=== PATIENT | female | born 1990 | race Asian ===

== ENCOUNTER 2022-10-11 05:25 | Emergency (ER) | payer OTHER, SELFPAY ==
[2022-10-11 05:36] VITALS: BP 128/84; PULSE 89; RESP 18; TEMP 36.7; O2SAT 99; BMI 19.5
--- NOTE | 2022-10-11 05:55 | CRLHL7_ITS ---
For Patients: As a result of the Century Cures Act, medical imaging exams and procedure reports are released immediately into your electronic medical record. You may view this report before your referring provider. If you have questions, please contact your health care provider. Indication: Left upper quadrant pain. Technique: Upright and supine views of the abdomen were acquired Comparison: There are no prior studies for comparison Findings: Osseous structures appear normal. Mild fecal retention. No indication of mechanical obstruction. No pathologic calcification Impression: Mild fecal retention without mechanical obstruction. Dictated by Noel Barrios MD @ 10/11/2022 6:50:23 AM (Electronically Signed)
--- NOTE | 2022-10-11 06:05 | ED_ITS ---
HPI - Chest Pain General Chief Complaint: Chest Pain Stated Complaint: chest pain Time Seen by Provider: 10/11/22 05:35 Source: patient and family Mode of arrival: ambulatory Limitations: no limitations History of Present Illness HPI narrative: Otherwise healthy 32-year-old female presents with pain underneath the left breast radiating to the left upper quadrant of the abdomen for the last hour. Earlier this evening, she was having crampy diffuse abdominal pain, mostly in the lower anterior abdomen that improved without any treatment. She does note some mild body aches and chills this evening but no true fever, cough or upper respiratory symptoms. No nausea. Slightly decreased appetite today. She denies , does not use contraception. Denies prior history of DVT or PE. She has no significant personal history of cardiac disease nor prior cardiac workup. She does have a remote family history of heart disease in a grandfather at typical ages. She did not try any home treatment for her pain. Currently, it is sharp and constant. It is worse with taking a deep breath and with sudden movements. She denies any rash. There is no shortness of breath, cough or other associated symptoms. She does not have a history of asthma. No palpitations or heart fluttering. No history of arrhythmias. Last bowel movement was yesterday evening, formed. Reporting that it was smaller than usual. Past medical history benign. Denies any major long-term health problems. No prescription medications. No allergies. No surgeries. Socially, she is a nonsmoker with no recent pertinent travel. Family history is notable for heart disease only at advanced ages. ROS is notable for the generalized and chest wall symptoms and abdominal symptoms as described above. Otherwise denies times 15 systems. Related Data Home Medications Medication Instructions Recorded Confirmed No Known Home Medications 10/11/22 10/11/22 Allergies Allergy/AdvReac Type Severity Reaction Status Date / Time No Known Drug Allergies Allergy Verified 10/11/22 05:39 [facility] Medical History (Updated 10/11/22 @ 07:20 by Abida Alexander MD) No significant past medical history Surgical History (Updated 10/11/22 @ 06:16 by Ward Bingham RN) H/O excision of ganglion cyst History of wisdom tooth extraction Hx of LASIK Social History Smoking Status: Never smoker Do you use any of these nicotine containing products: None Second hand tobacco smoke exposure: No How often do you have a drink containing alcohol: never How often do you have six or more drinks on one occasion: Never AUDIT-C Alcohol total score: 0 Non-prescribed substance use: denies use Exam Const Vital Signs, click to edit/add: Vital Signs - 24 hr 10/11/22 05:36 10/11/22 06:07 10/11/22 07:10 Temperature 98.0 F 98.0 F Pulse Rate [Right Pulse Oximeter] 89 77 Respiratory Rate 18 18 Blood Pressure [Right Upper Arm] 128/84 92/63 Pulse Oximetry 99 96 Oxygen Delivery Method Room Air Room Air Documenting provider has reviewed patient's vital signs: yes Common normals: no apparent distress and alert General appearance: cooperative and well kempt Orientation/consciousness: Yes awake Other: Appears mildly uncomfortable. Faisal historian. MAURISIO Common normals: normocephalic Head and scalp: normocephalic Mouth: oral and palatal mucosa normal Throat: posterior oropharynx normal Eye Common normals: no scleral icterus Other: Conjunctiva are slightly injected, normal visual tracking. Neck & C-Spine Common normals: full ROM Other: Mild anterior cervical and submandibular lymphadenopathy noted. Mildly tender. No meningeal signs. Chest Common normals: inspection of chest normal Other: Palpation of left anterior ribs and epigastric region do reproduce tenderness. Resp Common normals: normal respiratory effort, no use of accessory muscles and clear to auscultation bilaterally Effort & inspection: able to speak in complete sentences Auscultation: clear to auscultation bilaterally Cardio Common normals: regular rate, regular rhythm, S1 normal heart sound, S2 normal heart sound, no murmurs and peripheral pulses 2+ throughout Rate: regular rate Rhythm: regular rhythm Heart sounds: S1 normal and S2 normal Peripheral pulses: pulses 2+ throughout GI Common normals: Normal to inspection, nondistended, normoactive bowel sounds present Other: Mildly tender to palpation of left upper quadrant, no rebound tenderness or guarding. No mass. Common normals: no CVA tenderness Bladder/kidney exam: no CVA tenderness Back & Pelvis Common normals: no CVA tenderness and thoracic and lumbar spine normal to inspection Extremity Common normals: normal to inspection, normal capillary refill and no pedal edema Neuro Sensorium/orientation: awake and alert Speech: speech normal Motor exam: strength 5/5 throughout, no tremor noted and no movement abnormalities noted Psych Appearance: well kempt Attitude: engaged Activity/motor behavior: appropriate eye contact Insight: insight good Judgement: judgment good Skin Common normals: no rashes or lesions noted General skin exam: no rashes or lesions noted Course Vital Signs Vital signs: Initial Vital Signs Temperature 98.0 F 10/11/22 05:36 Temperature Source Temporal Artery Scan 10/11/22 05:36 Pulse Rate 89 10/11/22 05:36 Respiratory Rate 18 10/11/22 05:36 Blood Pressure 128/84 10/11/22 05:36 Blood Pressure Mean 98 10/11/22 05:36 Blood Pressure Position Sitting 10/11/22 05:36 Pulse Oximetry 99 10/11/22 05:36 Oxygen Delivery Method 10/11/22 05:36 Vital Signs Temperature 98.0 F 10/11/22 05:36 Pulse Rate 89 10/11/22 05:36 Respiratory Rate 18 10/11/22 05:36 Blood Pressure 128/84 10/11/22 05:36 Pulse Oximetry 99 10/11/22 05:36 Oxygen Delivery Method 10/11/22 05:36 Temperature 98.0 F 10/11/22 06:07 Pulse Rate 77 10/11/22 07:10 Respiratory Rate 18 10/11/22 07:10 Blood Pressure 92/63 10/11/22 07:10 Pulse Oximetry 96 10/11/22 07:10 Oxygen Delivery Method 10/11/22 07:10 MDM - Chest Pain MDM Narrative Medical decision making narrative: Differential diagnosis including cardiac disease, pulmonary disease, constipation, pulmonary embolism, pneumonia, influenza, gastritis or esophagitis. Reproducible chest pain also suggestive of musculoskeletal etiology. No rashes to suggest shingles. Counseled patient on initial suspicion based exam. Will get EKG, basic labs and x-ray of abdomen. Administer Tylenol and famotidine. Update 0730: Patient without much change in symptoms following Tylenol and famotidine. This is as expected. X-ray reviewed, per my interpretation gas and some constipation. Per radiologist interpretation, mild fecal retention with no signs of obstruction, consistent with my findings. Labs and x-ray findings discussed with patient. I do think the constipation explains her symptoms. Will administer MiraLax x1. She asks a lot of follow-up questions regarding long-term symptoms, I encouraged her to start a low FODMAP diet and to follow up with her primary care provider to discuss further but I do relate to her that nothing she is describing sounds the least bit like an allergy. Medical Records Data Medical records narrative: No previous records available Lab Data Attestation: I reviewed the patient's lab results. Labs: Lab Results 10/11/22 10/11/22 10/11/22 Range/Units 06:00 06:05 06:15 WBC (4.50-11.00) K/uL RBC (4.00-5.20) m/uL Hgb (12.0-16.0) gm/dL Hct (33.0-51.0) % MCV (80-100) fL MCH (26-34) pg MCHC (32-36) gm/dL RDW Coeff of Topher (11.5-15.5) % Plt Count (140-440) K/uL Neut % (Auto) (42.0-72.0) % Lymph % (Auto) (20-44) % [place] % (Auto) (0.0-11.0) % Eos % (Auto) (0.0-7.0) % Baso % (Auto) (0.0-3.0) % Neut # (Auto) (1.7-7.0) K/uL Lymph # (Auto) (0.90-2.90) K/uL [place] # (Auto) (0.00-0.90) K/UL Eos # (Auto) (0.00-0.50) K/uL Baso # (Auto) (0.00-0.30) K/uL Abs Immat Gran (auto) (0.00-0.30) K/uL Imm/Tot Granulo (auto) % D-Dimer Quant (PE/DVT) (0.00-0.50) ug/ml Sodium 136 (135-149) mmol/L Potassium 3.8 (3.6-5.1) mmol/L Chloride 108 (96-114) mmol/L Carbon Dioxide 21 (20-32) mmol/L BUN 11 (5-24) mg/dL Creatinine 0.7 (0.5-1.5) mg/dL Estimated Creat Clear 92.56 Estimated GFR 119 ml/min Glucose 90 (60-115) mg/dL Calcium 9.6 (8.4-10.6) mg/dL Total Bilirubin 0.6 (0.1-1.5) mg/dL AST 22 (12-35) U/L ALT 17 (4-35) U/L Alkaline Phosphatase 70 (40-150) U/L Troponin I (0.01-0.04) ng/mL C-Reactive Protein (0.5-1.0) mg/dL Total Protein 7.3 (6.0-8.3) g/dL Albumin 4.2 (3.3-5.0) g/dL HCG, Qual Negative (Negative) Urine Color Yellow (Yellow) Urine Appearance Clear (Clear) Urine pH 5.5 (5.0-8.5) Ur Specific [place] 1.020 (1.000-1.030) Urine Protein Negative (Negative) Urine Glucose (UA) Negative (Negative) Urine Ketones 3+ A (Negative) Urine Blood 2+ A (Negative) Urine Nitrite Negative (Negative) Urine Bilirubin Negative (Negative) Urine Urobilinogen 0.2 (0.2-1.0) Ur Leukocyte Esterase Negative (Negative) Urine RBC 0-2 (0-2) Urine WBC 0-2 (0-5) Ur Squamous Epith Cells Few (None-Few) Amorphous Sediment Few A (None) Urine Bacteria Moderate A (None) Urine Mucus Few A (None) SARS-CoV-2 (PCR) Negative SARS-CoV-2 (Negative) Influenza Type A (PCR) Negative PCR FLU A (Negative) Influenza Type B (PCR) Negative PCR FLU B (Negative) POC Troponin I (0.01-0.04) ng/ml 10/11/22 10/11/22 10/11/22 Range/Units 06:15 06:15 06:15 WBC 7.74 (4.50-11.00) K/uL RBC 4.80 (4.00-5.20) m/uL Hgb 13.8 (12.0-16.0) gm/dL Hct 41.5 (33.0-51.0) % MCV 87 (80-100) fL MCH 29 (26-34) pg MCHC 33 (32-36) gm/dL RDW Coeff of Topher 12.5 (11.5-15.5) % Plt Count 210 (140-440) K/uL Neut % (Auto) 79.9 H (42.0-72.0) % Lymph % (Auto) 15.5 L (20-44) % [place] % (Auto) 3.2 (0.0-11.0) % Eos % (Auto) 0.9 (0.0-7.0) % Baso % (Auto) 0.4 (0.0-3.0) % Neut # (Auto) 6.20 (1.7-7.0) K/uL Lymph # (Auto) 1.20 (0.90-2.90) K/uL [place] # (Auto) 0.20 (0.00-0.90) K/UL Eos # (Auto) 0.07 (0.00-0.50) K/uL Baso # (Auto) 0.03 (0.00-0.30) K/uL Abs Immat Gran (auto) 0.01 (0.00-0.30) K/uL Imm/Tot Granulo (auto) 0.1 % D-Dimer Quant (PE/DVT) 0.42 (0.00-0.50) ug/ml Sodium (135-149) mmol/L Potassium (3.6-5.1) mmol/L Chloride (96-114) mmol/L Carbon Dioxide (20-32) mmol/L BUN (5-24) mg/dL Creatinine (0.5-1.5) mg/dL Estimated Creat Clear Estimated GFR ml/min Glucose (60-115) mg/dL Calcium (8.4-10.6) mg/dL Total Bilirubin (0.1-1.5) mg/dL AST (12-35) U/L ALT (4-35) U/L Alkaline Phosphatase (40-150) U/L Troponin I < 0.01 L (0.01-0.04) ng/mL C-Reactive Protein 0.6 (0.5-1.0) mg/dL Total Protein (6.0-8.3) g/dL Albumin (3.3-5.0) g/dL HCG, Qual (Negative) Urine Color (Yellow) Urine Appearance (Clear) Urine pH (5.0-8.5) Ur Specific [place] (1.000-1.030) Urine Protein (Negative) Urine Glucose (UA) (Negative) Urine Ketones (Negative) Urine Blood (Negative) Urine Nitrite (Negative) Urine Bilirubin (Negative) Urine Urobilinogen (0.2-1.0) Ur Leukocyte Esterase (Negative) Urine RBC (0-2) Urine WBC (0-5) Ur Squamous Epith Cells (None-Few) Amorphous Sediment (None) Urine Bacteria (None) Urine Mucus (None) SARS-CoV-2 (PCR) (Negative) Influenza Type A (PCR) (Negative) Influenza Type B (PCR) (Negative) POC Troponin I (0.01-0.04) ng/ml 10/11/22 Range/Units 06:15 WBC (4.50-11.00) K/uL RBC (4.00-5.20) m/uL Hgb (12.0-16.0) gm/dL Hct (33.0-51.0) % MCV (80-100) fL MCH (26-34) pg MCHC (32-36) gm/dL RDW Coeff of Topher (11.5-15.5) % Plt Count (140-440) K/uL Neut % (Auto) (42.0-72.0) % Lymph % (Auto) (20-44) % [place] % (Auto) (0.0-11.0) % Eos % (Auto) (0.0-7.0) % Baso % (Auto) (0.0-3.0) % Neut # (Auto) (1.7-7.0) K/uL Lymph # (Auto) (0.90-2.90) K/uL [place] # (Auto) (0.00-0.90) K/UL Eos # (Auto) (0.00-0.50) K/uL Baso # (Auto) (0.00-0.30) K/uL Abs Immat Gran (auto) (0.00-0.30) K/uL Imm/Tot Granulo (auto) % D-Dimer Quant (PE/DVT) (0.00-0.50) ug/ml Sodium (135-149) mmol/L Potassium (3.6-5.1) mmol/L Chloride (96-114) mmol/L Carbon Dioxide (20-32) mmol/L BUN (5-24) mg/dL Creatinine (0.5-1.5) mg/dL Estimated Creat Clear Estimated GFR ml/min Glucose (60-115) mg/dL Calcium (8.4-10.6) mg/dL Total Bilirubin (0.1-1.5) mg/dL AST (12-35) U/L ALT (4-35) U/L Alkaline Phosphatase (40-150) U/L Troponin I (0.01-0.04) ng/mL C-Reactive Protein (0.5-1.0) mg/dL Total Protein (6.0-8.3) g/dL Albumin (3.3-5.0) g/dL HCG, Qual (Negative) Urine Color (Yellow) Urine Appearance (Clear) Urine pH (5.0-8.5) Ur Specific [place] (1.000-1.030) Urine Protein (Negative) Urine Glucose (UA) (Negative) Urine Ketones (Negative) Urine Blood (Negative) Urine Nitrite (Negative) Urine Bilirubin (Negative) Urine Urobilinogen (0.2-1.0) Ur Leukocyte Esterase (Negative) Urine RBC (0-2) Urine WBC (0-5) Ur Squamous Epith Cells (None-Few) Amorphous Sediment (None) Urine Bacteria (None) Urine Mucus (None) SARS-CoV-2 (PCR) (Negative) Influenza Type A (PCR) (Negative) Influenza Type B (PCR) (Negative) POC Troponin I 0.00 L (0.01-0.04) ng/ml ECG Data Attestation: I personally reviewed and interpreted this ECG as follows: Prior ECG tracings: not available for review Interpretation: Normal sinus rhythm, rate of 80 with normal axis. Good R-wave progression, no LVH. No ST abnormalities, some T-wave inversion and or Flattening in the lateral leads, but suspect that this is just because of her very petite frame.. Discharge Plan Discharge Clinical Impression: Constipation Patient Disposition: Home w/ Parent or Adult Condition: Stable Instructions: Constipation (ED), High Fiber Diet (ED) Additional Instructions: As we discussed, there are no signs of problems with her heart, lungs, blood clots, liver or other vital organs. There are no signs of any emergent issues. Your swabs for COVID and influenza are also reassuring we negative. I do s uspect that the constipation explains the pain that your had I recommend that you continue using MiraLax 17 g which is 1 dose every 8 hours until your bowels are moving loosely. You may restart the MiraLax in the future for similar symptoms. Many people find that ACs small dose of MiraLax like a 1/2 tsp daily next into a warm beverage can help prevent future problems once the bowels have been cleaned out appropriately. You mention more long-term issues, I would recommend beginning a low FODMAP diet and following up with her primary care provider to further discuss your irritable bowel symptoms. This is not at all sound like a food allergy. You can perform an Internet search for the low FODMAP diet protocol. Chest pain that can be reproduced by deep breaths or pressing on the chest wall without significant additional worrisome symptoms like dizziness, shortness of breath or worsening on exertion are typically not emergent. This is also reassuring. It is okay to continue use of Tylenol and ibuprofen as needed for the discomfort. Activity Level: No Restrictions Discharge Diet: Regular Prescriptions: No Action No Known Home Medications Follow Up/Referrals: Provider,Not a Local [Primary Care Provider] - Stand Alone Forms: [employer] Info Instructions
[2022-10-11 06:07] VITALS: TEMP 36.7
[2022-10-11] MEDS: ACETAMINOPHEN 325 MG TABLET 650 MG PO (06:07)
[2022-10-11] MEDS: FAMOTIDINE 20 MG TABLET PO (06:07)
[2022-10-11 06:25] LABS: Basophils Absolute Auto 0.03 K/uL (0.00-0.30); Basophils Percent Auto 0.4 % (0.0-3.0); Eosinophils Absolute Auto 0.07 K/uL (0.00-0.50); Eosinophils Percent Auto 0.9 % (0.0-7.0); Hematocrit 41.5 % (33.0-51.0); Hemoglobin* 13.8 gm/dL (12.0-16.0); Immature Granulocytes Abs Auto 0.01 K/uL (0.00-0.30); Immature Granulocytes Pct Auto 0.1 %; Lymphocytes Percent Auto 15.5 % (20-44); Mean Corpuscular HGB Conc 33 gm/dL (32-36); Mean Corpuscular Hemoglobin 29 pg (26-34); Mean Corpuscular Volume 87 fL (80-100); Monocytes Percent Auto 3.2 % (0.0-11.0); Neutrophils Percent Auto 79.9 % (42.0-72.0); Platelet Count* 210 K/uL (140-440); RDW Coefficient of Variation % 12.5 % (11.5-15.5); White Blood Count* 7.74 K/uL (4.50-11.00)
[2022-10-11 06:26] LABS: Slide Review Reflex No
[2022-10-11 06:31] LABS: HCG Qualitative* Negative (Negative)
[2022-10-11 06:32] LABS: Appearance Urine Clear (Clear); Bilirubin Urine Negative (Negative); Blood Urine 2+ (Negative); Color Urine Yellow (Yellow); Glucose Urine Negative (Negative); Ketones Urine 3+ (Negative); Leukocyte Esterase Urine Negative (Negative); Nitrite Urine Negative (Negative); Protein Urine Negative (Negative); Urobilinogen Urine 0.2 (0.2-1.0); pH Urine 5.5 (5.0-8.5)
[2022-10-11 06:49] LABS: Amorphous Sediment Urine Few; Bacteria Urine Moderate; Mucus Urine Few; RBC Urine 0-2 (0-2); Squamous Epithelial Cell Urine Few (None-Few); WBC Urine 0-2 (0-5)
[2022-10-11 06:50] LABS: C Reactive Protein* 0.6 mg/dL (0.5-1.0)
[2022-10-11 06:52] LABS: D Dimer Quantitative* 0.42 ug/ml (0.00-0.50)
[2022-10-11 07:00] LABS: Troponin I* < 0.01 ng/mL (0.01-0.04)
[2022-10-11 07:08] LABS: PCR FLU A Negative PCR FLU A (Negative); PCR FLU B Negative PCR FLU B (Negative)
[2022-10-11 07:09] LABS: SARS PCR* Negative SARS-CoV-2 (Negative)
[2022-10-11 07:10] VITALS: BP 92/63; PULSE 77; RESP 18; O2SAT 96
--- NOTE | 2022-10-11 07:11 | ED.NURSE ---
loaiza in to see. explaining some of the findings.
[2022-10-11] MEDS: polyethylene glycoL 3350 17 GM PACK PO (07:44)
[2022-10-11 07:45] LABS: Chloride* 108 mmol/L (96-114)
[2022-10-11 07:46] LABS: Albumin* 4.2 g/dL (3.3-5.0); Potassium* 3.8 mmol/L (3.6-5.1); Sodium* 136 mmol/L (135-149)
[2022-10-11 07:49] LABS: Alanine Aminotransferase* 17 U/L (4-35); Alkaline Phosphatase* 70 U/L (40-150); Aspartate Amino Transferase* 22 U/L (12-35); Bilirubin Total* 0.6 mg/dL (0.1-1.5); Blood Urea Nitrogen* 11 mg/dL (5-24); Carbon Dioxide* 21 mmol/L (20-32); Creatinine* 0.7 mg/dL (0.5-1.5); Est. Creatinine Clearance* 92.56; Estimated Glomerular Filt Rate 119 ml/min; Glucose* 90 mg/dL (60-115); Total Protein* 7.3 g/dL (6.0-8.3)
[2022-10-11 07:50] LABS: Calcium* 9.6 mg/dL (8.4-10.6)
== END 2022-10-11 08:02 | disposition home or self-care (01) ==
PROVIDERS: Emergency Provider Family Medicine
DX: K59.00 Constipation, unspecified (principal)
CPT/HCPCS: 36415; 74019; 80053; 81003; 81015; 84484; 84703; 85025; 85379; 86140; 87086; 87186; 87631; 93005; 99283; 99284; 99285; A9270

== ENCOUNTER 2023-08-08 11:00 | Outpatient (RCR) | payer OTHER, SELFPAY | END 2023-11-27 10:01 | disposition home or self-care (01) | PROVIDERS: Visit Provider Advanced Practice Midwife | DX: N94.2 Vaginismus (principal); R27.8 Other lack of coordination; Z51.89 Encounter for other specified aftercare | CPT/HCPCS: 97110; 97112; 97140; 97161; 97535 ==